=== PATIENT | female | born 1990 | race American Indian/Alaskan Native ===

== ENCOUNTER 2017-04-30 19:14 | Emergency (ER) | payer SELFPAY ==
[2017-04-30 20:45] LABS: Bilirubin,Urine NEG (Negative); Blood,Urine SM (Negative); Ketones,Urine NEG (Negative); Leukocyte Esterase,Urine TR (Negative); Mucus,Urine FEW /HPF; Nitrite,Urine NEG (Negative); Protein,Urine <15 mg/dL mg/dL (Negative)
--- NOTE | 2017-04-30 23:48 | Emergency Department Report ---
ED Female HPI - General Chief complaint: Urogenital-Female Stated complaint: POSS UTI Time Seen by Provider: 04/30/17 23:31 Source: patient Mode of arrival: Ambulatory Limitations: No Limitations - History of Present Illness MD Complaint: dysuria, possible STD -: Gradual, days(s) Location: suprapubic Radiation: non-radiating Severity: moderate Severity scale (0 -10): 4 Quality: dull Consistency: constant Improves with: none Worsens with: none Are you Now?: No (IUD) Associated Symptoms: denies other symptoms - Related Data Sexually active: Yes (Her sex partner is c/o dysuria, unprotected sex) Previous Rx's Medication Instructions Recorded Last Taken Type HYDROcodone/APAP 5-325 [[place] 1 each PO Q6HR PRN #10 tablet 01/30/14 Unknown Rx 5/325] Ibuprofen [Motrin 800 MG tab] 800 mg PO TID #30 tablet 01/30/14 Unknown Rx Permethrin 5% [Acticin 5% CREAM] 1 applicatio TP ONCE #60 tube 01/30/14 Unknown Rx Sulfamethoxazole/Trimethoprim 1 each PO BID #20 tablet 01/30/14 Unknown Rx [Bactrim Ds] metroNIDAZOLE [Flagyl] 500 mg PO BID #20 tablet 01/30/14 Unknown Rx Ciprofloxacin HCl [Cipro] 500 mg PO BID 10 Days tablet 04/30/17 Unknown Rx metroNIDAZOLE [Metronidazole] 500 mg PO BID 7 Days tablet 04/30/17 Unknown Rx Allergies Allergy/AdvReac Type Severity Reaction Status Date / Time No Known Allergies Allergy Verified 01/29/14 23:10 ED Review of Systems ROS: Stated complaint: POSS UTI Other details as noted in HPI Constitutional: denies: chills, fever Eyes: denies: eye pain, eye discharge, vision change ENT: denies: ear pain, throat pain Respiratory: denies: cough, shortness of breath, wheezing Cardiovascular: denies: chest pain, palpitations Endocrine: no symptoms reported Gastrointestinal: denies: abdominal pain, nausea, diarrhea Genitourinary: as per HPI, dysuria. denies: urgency, discharge Musculoskeletal: denies: back pain, joint swelling, arthralgia Skin: denies: rash, lesions Neurological: denies: headache, weakness, paresthesias Psychiatric: denies: anxiety, depression Hematological/Lymphatic: denies: easy bleeding, easy bruising ED Past Medical Hx - Past Medical History Previous Medical History?: No - Surgical History Past Surgical History?: Yes Additional Surgical History: l) knee surgery - Social History Smoking Status: Current Every Day Smoker Substance Use Type: Alcohol - Medications Home Medications: Home Medications Medication Instructions Recorded Confirmed Last Taken Type HYDROcodone/APAP 5-325 [[place] 1 each PO Q6HR PRN #10 tablet 01/30/14 Unknown Rx 5/325] Ibuprofen [Motrin 800 MG tab] 800 mg PO TID #30 tablet 01/30/14 Unknown Rx Permethrin 5% [Acticin 5% CREAM] 1 applicatio TP ONCE #60 tube 01/30/14 Unknown Rx Sulfamethoxazole/Trimethoprim 1 each PO BID #20 tablet 01/30/14 Unknown Rx [Bactrim Ds] metroNIDAZOLE [Flagyl] 500 mg PO BID #20 tablet 01/30/14 Unknown Rx Ciprofloxacin HCl [Cipro] 500 mg PO BID 10 Days tablet 04/30/17 Unknown Rx metroNIDAZOLE [Metronidazole] 500 mg PO BID 7 Days tablet 04/30/17 Unknown Rx ED Physical Exam - General Limitations: No Limitations General appearance: alert, in no apparent distress - Head Head exam: Present: atraumatic, normocephalic - Eye Eye exam: Present: normal appearance - ENT ENT exam: Present: mucous membranes moist - Neck Neck exam: Present: normal inspection - Respiratory Respiratory exam: Present: normal lung sounds bilaterally. Absent: respiratory distress - Cardiovascular Cardiovascular Exam: Present: regular rate, normal rhythm. Absent: systolic murmur, diastolic murmur, rubs, gallop - GI/Abdominal GI/Abdominal exam: Present: soft, normal bowel sounds - Extremities Exam Extremities exam: Present: normal inspection - Back Exam Back exam: Present: normal inspection - Neurological Exam Neurological exam: Present: alert, oriented X3 - Psychiatric Psychiatric exam: Present: normal affect, normal mood - Skin Skin exam: Present: warm, dry, intact, normal color. Absent: rash ED Course Vital Signs 04/30/17 19:35 Temperature 98.5 F Pulse Rate 78 Respiratory 16 Rate Blood Pressure 129/77 [Right] O2 Sat by Pulse 98 Oximetry Critical care attestation.: If time is entered above; I have spent that time in minutes in the direct care of this critically ill patient, excluding procedure time. ED Disposition Clinical Impression: Possible exposure to STD UTI (urinary tract infection) Qualifiers: Urinary tract infection type: site unspecified Hematuria presence: without hematuria Qualified Code(s): N39.0 - Urinary tract infection, site not specified Disposition: TO HOME OR SELFCARE Is pt being admited?: No Does the pt Need Aspirin: No Condition: Good Instructions: Sexually Transmitted Diseases (ED) Prescriptions: Ciprofloxacin HCl [Cipro] 500 mg PO BID 10 Days tablet metroNIDAZOLE [Metronidazole] 500 mg PO BID 7 Days tablet Referrals: PRIMARY CARE, [Primary Care Provider] - 3-5 Days Time of Disposition: 23:50
[2017-05-01 00:52] VITALS: BP 124/70
== END 2017-05-01 00:20 | disposition home or self-care (01) ==
LOC: ED 19:14
DX: N39.0 Urinary tract infection, site not specified (principal); F17.200 Nicotine dependence, unspecified, uncomplicated
CPT/HCPCS: 81001; 81025; 99283